=== PATIENT | female | born 1975 | race Caucasian/White ===

== ENCOUNTER 2019-07-06 04:20 | Emergency (ER) | payer SELFPAY ==
[~2019-07-06] VITALS: Ht 167.6 cm; Wt 77.1 kg
[2019-07-06 04:25] VITALS: BP_SYST 119
--- NOTE | 2019-07-06 05:26 | NUR ---
Placed in room 7 . Placed on safety and health manager, blood pressure machine and pulse oximeter. To gown for exam. Side rails up. Report given to Vazquez LAIRD.
--- NOTE | 2019-07-06 05:55 | NUR ---
ER at bedside examining patient.
[2019-07-06] MEDS ORDERED: IPRATROPIUM/ALBUTEROL SULFATE 3 ML AMPUL.NEB (DUONEB) INH ONE (06:00)
--- NOTE | 2019-07-06 06:00 | NUR ---
Pt BIBA to ED C/O bilateral LE swelling. The patient thinks that this has been present for 1 week. She denies any accidents/injuries. No chest pain. She is a long time smoker, and is short of breath. In addition to the swelling, she does have some LE pain
--- NOTE | 2019-07-06 06:02 | NUR ---
RT at the bedside for breathing tx.
--- NOTE | 2019-07-06 06:03 | NUR ---
[employer] at the bedside for blood drawn.
[2019-07-06 06:16] LABS: BASOPHILS # (AUTO) 0.1 K/uL (0.0-0.2); EOSINOPHILS # (AUTO) 0.2 K/uL (0.0-0.4); EOSINOPHILS % (AUTO) 2.7 % (0.0-4.0); HEMATOCRIT 41.7 % (36-48); HEMOGLOBIN 13.5 g/dL (12.0-16.0); LYMPHOCYTES # (AUTO) 1.5 K/uL (1.0-5.5); LYMPHOCYTES % (AUTO) 24.9 % (20.5-51.5); MEAN CORPUSCULAR HEMOGLOBIN 30 pg (27-31); MEAN CORPUSCULAR HGB CONC 33 % (32-36); MEAN CORPUSCULAR VOLUME 93 fL (79.0-98.0); MONOCYTES # (AUTO) 0.4 K/uL (0.0-1.0); MONOCYTES % (AUTO) 6.3 % (1.7-9.3); NEUTROPHILS # (AUTO) 3.9 K/uL (1.8-7.7); NEUTROPHILS % (AUTO) 65.1 % (40.0-70.0); PLATELET COUNT (AUTO) 168 K/uL (130-430); RED BLOOD CELL COUNT(AUTO) 4.49 MIL/uL (4.2-6.2); RED CELL DISTRIBUTION WIDTH 14.2 % (9.0-15.0); WHITE BLOOD COUNT (AUTO) 6.1 K/uL (4.8-10.8)
--- NOTE | 2019-07-06 06:23 | NUR ---
Chest X-ray performed at the bedside.Pt tolerated well.
[2019-07-06 06:24] LABS: ANION GAP 6 (5-15); CALCIUM 8.3 mg/dL (8.4-11.0); CHLORIDE 105 mmol/L (98-107); CREATININE 0.56 mg/dL (0.55-1.30); GLUCOSE 108 mg/dL (70-99); POTASSIUM 3.7 mmol/L (3.5-5.1); SODIUM SERUM 141 mmol/L (136-145); UREA NITROGEN, BLOOD 11 mg/dL (8-21)
--- NOTE | 2019-07-06 06:32 | NUR ---
Urine HCG done, results negative.
[2019-07-06 06:35] LABS: GFR AFRICAN AMERICAN 152 mL/min (>90); PROTHROMBIN TIME 9.8 SECS (9.5-12.5)
[2019-07-06 06:40] LABS: BILIRUBIN,URINE NEGATIVE (NEGATIVE); BLOOD, URINE NEGATIVE (NEGATIVE); COLOR,URINE YELLOW (YELLOW); GLUCOSE,URINE NEGATIVE (NEGATIVE); KETONES,URINE NEGATIVE (NEGATIVE); LEUKOCYTE ESTERASE ,URINE NEGATIVE (NEGATIVE); NITRITE, URINE NEGATIVE (NEGATIVE); PH,URINE 8.5 (5.0-8.0); PROTEIN URINE NEGATIVE (NEGATIVE)
[2019-07-06 06:44] LABS: ALANINE AMINOTRANSFERASE 19 U/L (12-78); ALBUMIN 3.2 g/dL (3.4-4.8); ASPARTATE AMINOTRANSFERASE 15 U/L (10-37); TOTAL BILIRUBIN 0.4 mg/dL (0.0-1.0)
[2019-07-06 06:58] LABS: CLARITY/URINE SLIGHTLY CLOUDY (CLEAR)
--- NOTE | 2019-07-06 07:14 | NUR ---
Report given to Brianda LAIRD
--- NOTE | 2019-07-06 07:24 | NUR ---
PT WITNESSED TO WALK OUT OF ROOM AND OUT OF HOSPITAL. UNABLE TO LOCATE PT IN PARKING LOT OR WAITING ROOM. PT ELOPED.
== END 2019-07-06 07:24 | disposition left against medical advice (07) ==
LOC: SED 04:20
DX: M79.89 Other specified soft tissue disorders (principal); R06.02 Shortness of breath; F17.290 Nicotine dependence, other tobacco product, uncomplicated
CPT/HCPCS: 36415; 71045; 80053; 81003; 81025; 83880; 84484; 85025; 85379; 85610; 85730; 93970; 94640; 99285; J7620

== ENCOUNTER 2019-07-07 09:22 | Emergency (ER) | payer MEDICARE ==
[~2019-07-07] VITALS: Ht 160 cm; Wt 68.0 kg
[2019-07-07 09:22] VITALS: BP_SYST 121
--- NOTE | 2019-07-07 09:22 | NUR ---
BROUGHT BACK TO BED IN HALLWAY, TRIAGED, REPORT GIVEN TO DEYVI
--- NOTE | 2019-07-07 09:40 | NUR ---
DR RIVERA AT BEDSIDE FOR EVALUATION
--- NOTE | 2019-07-07 09:55 | NUR ---
Patient given written and verbal discharge instructions and verbalizes understanding. ER MD discussed with patient the results and treatment provided. Patient in stable condition. ID arm band removed. Rx of Tramadol given. Patient educated on pain management and to follow up with PMD. Pain Scale 2/10 tolerable for patient Opportunity for questions provided and answered. Medication side effect fact sheet provided.
--- NOTE | 2019-07-07 09:57 | NUR ---
PT WITNESSED TO WALK TO THE [facility] IN PARKING LOT
== END 2019-07-07 09:55 | disposition home or self-care (01) ==
LOC: SED 09:22
DX: R60.0 Localized edema (principal); R03.0 Elevated blood-pressure reading, without diagnosis of hypertension; F17.290 Nicotine dependence, other tobacco product, uncomplicated; Z71.6 Tobacco abuse counseling
CPT/HCPCS: 99283

== ENCOUNTER 2019-11-17 21:54 | Emergency (ER) | payer MEDICARE ==
[~2019-11-17] VITALS: Ht 165.1 cm; Wt 72.6 kg
[2019-11-17 22:00] VITALS: BP_SYST 136
--- NOTE | 2019-11-17 22:00 | NUR ---
Patient to ER bed HALLWAY 1 to gown for evaluation. Side rails up. Report given to SEPTEMBER.
--- NOTE | 2019-11-17 22:02 | NUR ---
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 PT LEFT INDEX FINGER RED AND SWOLLEN. PT REPORTS 10/10 PAIN SCALE.
--- NOTE | 2019-11-17 22:39 | NUR ---
ER Dr. Ozuna at bedside examining patient.
[2019-11-17 23:00] VITALS: BP_SYST 136
--- NOTE | 2019-11-17 23:00 | NUR ---
Patient given written and verbal discharge instructions and verbalizes understanding. ER MD discussed with patient the results and treatment provided. Patient in stable condition. ID arm band removed. NO Rx given. Patient educated on pain management and to follow up with PMD. Pain Scale 2/10. Opportunity for questions provided and answered.
== END 2019-11-17 23:00 | disposition home or self-care (01) ==
LOC: SED 21:54
DX: S67.191A Crushing injury of left index finger, initial encounter (principal); F17.200 Nicotine dependence, unspecified, uncomplicated; F12.90 Cannabis use, unspecified, uncomplicated; W23.0XXA Caught, crushed, jammed, or pinched between moving objects, initial encounter; Y93.89 Activity, other specified; Y92.89 Other specified places as the place of occurrence of the external cause; Y99.8 Other external cause status
CPT/HCPCS: 73140-TC; 99283

== ENCOUNTER 2020-11-23 22:25 | Emergency (ER) | payer MEDICARE ==
[~2020-11-23] VITALS: Ht 162.6 cm; Wt 68.0 kg
[2020-11-23 22:43] VITALS: BP_SYST 109
[2020-11-24] MEDS ORDERED: IBUP-1969 PO (00:25)
[2020-11-24] MEDS ORDERED: NACL 0.9% 1,000 ML IV ONE (03:00)
[2020-11-24] MEDS ORDERED: VANCOMYCIN HCL 1,000 MG in NS 250 ML IV ONE (03:00)
== END 2020-11-24 00:52 | disposition left against medical advice (07) ==
LOC: SED 22:25
DX: M79.645 Pain in left finger(s) (principal); Z79.899 Other long term (current) drug therapy; W23.0XXA Caught, crushed, jammed, or pinched between moving objects, initial encounter; Y93.89 Activity, other specified; Y92.89 Other specified places as the place of occurrence of the external cause; Y99.8 Other external cause status
CPT/HCPCS: 73140-TC; 99283

== ENCOUNTER 2021-08-13 22:06 | Emergency (ER) | payer MEDICARE ==
[~2021-08-13] VITALS: Ht 165.1 cm; Wt 68.0 kg
[~2021-08-13 22:06] MED LIST: IBUP-1969 PO
[2021-08-13 22:15] VITALS: BP_SYST 116
--- NOTE | 2021-08-13 22:18 | NUR ---
Patient triaged and placed in waiting room. VSS and patient appears in no acute distress at this time. Accompanied by self , awaiting available bed, and MD notified of need for MSE.
--- NOTE | 2021-08-13 22:50 | NUR ---
Dr. Ozuna with patient at this time.
[2021-08-13 23:40] VITALS: BP_SYST 114
--- NOTE | 2021-08-13 23:42 | NUR ---
Patient given written and verbal discharge instructions and verbalizes understanding. ER MD discussed with patient the results and treatment provided. Patient in stable condition. ID arm band removed. Patient educated on pain management and to follow up with PMD. Opportunity for questions provided and answered.
== END 2021-08-13 23:42 | disposition home or self-care (01) ==
LOC: SED 22:06
DX: M79.671 Pain in right foot (principal); L84 Corns and callosities; F12.90 Cannabis use, unspecified, uncomplicated
CPT/HCPCS: 99283